=== PATIENT | female | born 1960 | race Caucasian/White ===

== ENCOUNTER → 2021-09-25 | Outpatient (CLI) | payer BC ==
--- NOTE | 2021-09-26 13:51 | MM ---
Reason for exam: screening (asymptomatic). Last mammogram was performed 18 years and 11 months ago. History: Patient is postmenopausal. Physical Findings: A clinical breast exam by your physician is recommended on an annual basis and results should be correlated with mammographic findings. MG 3D Screening Mammo W/Cad Bilateral CC and MLO view(s) were taken. XCCL view(s) were taken of the left breast. Prior study comparison: October 21, 2017, mammogram. January 18, 2015, mammogram. There are scattered fibroglandular densities. There are benign appearing round calcifications bilaterally. There is no discrete abnormality. ASSESSMENT: Negative, BI-RAD 1 RECOMMENDATION: Routine screening mammogram of both breasts in 1 year.
== END | disposition home or self-care (01) ==
LOC: RADMAMWWP 16:24
PROVIDERS: ATTEND Family Medicine
DX: Z08 Encounter for follow-up examination after completed treatment for malignant neoplasm (principal); Z80.3 Family history of malignant neoplasm of breast
CPT/HCPCS: 77063; 77067

== ENCOUNTER 2021-11-14 12:59 | Emergency (ER) | payer BC ==
--- NOTE | 2021-11-14 13:27 | ED ---
General Adult HPI - General Chief complaint: Fever Stated complaint: Fever,dehydration,Nausea Time Seen by Provider: 11/14/21 13:09 Source: patient Mode of arrival: ambulatory Limitations: no limitations - History of Present Illness Initial comments: 61-year-old female presents to the emergency room for a chief complaint of not feeling well. Patient states 2 days ago she started to feel sick. States she has had hot and cold flashes and felt fatigued. She has a slight cough. Patient states she just got over COVID-19 a few weeks ago. She went to urgent care today and tested negative for influenza but they were concerned about dehydration on her urinalysis so they sent her to the emergency room. Patient states her highest temperature is 98.3.Patient has no other complaints at this time including shortness of breath, chest pain, abdominal pain, nausea or vomiting, headache, or visual changes. - Related Data Home Medications Medication Instructions Recorded Confirmed Atorvastatin [Lipitor] 20 mg PO HS 11/14/21 11/14/21 Celecoxib [CeleBREX] 200 mg PO BID 11/14/21 11/14/21 Lisinopril [Prinivil] 10 mg PO DAILY 11/14/21 11/14/21 Turmeric Root Extract [Turmeric] 500 mg PO BID 11/14/21 11/14/21 Previous Rx's Medication Instructions Recorded Cephalexin [Keflex] 500 mg PO TID 7 Days #21 cap 11/14/21 Ondansetron [Zofran ODT] 4 mg PO Q8HR PRN #15 tab 11/14/21 Allergies Allergy/AdvReac Type Severity Reaction Status Date / Time No Known Allergies Allergy Verified 11/14/21 14:20 Review of Systems ROS Statement: Those systems with pertinent positive or pertinent negative responses have been documented in the HPI. ROS Other: All systems not noted in ROS Statement are negative. Past Medical History Past Medical History: No Reported History Additional Past Medical History / Comment(s): HX OF CONCUSSION, STATES SHE FELL AND "BROKE MY BACK"- WEARING BACK BRACE & HAS WALKER. History of Any Multi-Drug Resistant Organisms: None Reported Past Surgical History: Section, Hysterectomy, Tubal Ligation Additional Past Surgical History / Comment(s): REPAIR TENDON RIGHT ARM Past Anesthesia/Blood Transfusion Reactions: Motion Sickness Additional Past Anesthesia/Blood Transfusion Reaction / Comment(s): STATES DIFFICULTY WAKING UP. Past Psychological History: Depression Smoking Status: Current some day smoker Past Alcohol Use History: None Reported Past Drug Use History: None Reported - Past Family History Mother Family Medical History: No Reported History General Exam Limitations: no limitations General appearance: alert, in no apparent distress Head exam: Present: atraumatic Eye exam: Present: normal appearance, PERRL, EOMI. Absent: scleral icterus, conjunctival injection ENT exam: Present: normal exam, mucous membranes moist Neck exam: Present: normal inspection, full ROM. Absent: tenderness Respiratory exam: Present: normal lung sounds bilaterally. Absent: respiratory distress, wheezes Cardiovascular Exam: Present: regular rate, normal rhythm, normal heart sounds GI/Abdominal exam: Present: soft, normal bowel sounds. Absent: distended, tenderness Neurological exam: Present: alert Course Vital Signs 11/14/21 11/14/21 11/14/21 13:06 13:43 15:44 Temperature 98.3 F Pulse Rate 66 62 Respiratory 18 17 18 Rate Blood Pressure 98/64 130/81 O2 Sat by Pulse 94 L 95 Oximetry Medical Decision Making - Medical Decision Making Vitals are stable. Patient is well appearing. CBC does show mild leukocytosis. CMP unremarkable this may be some dehydration. Urinalysis does show evidence of infection. Patient is not having any flank pain or CVA tenderness. Chest x- ray shows no acute cardiopulmonary process. At this time patient will be treated for urinary tract infection. Patient was given IV antibiotics and will be transitioned to oral antibiotics at home. Strict return parameters discu ssed. - Lab Data Result diagrams: 11/14/21 13:38 11/14/21 13:38 Lab Results 11/14/21 11/14/21 11/14/21 Range/Units 13:38 13:38 13:38 WBC 12.6 H (3.8-10.6) k/uL RBC 5.12 (3.80-5.40) m/uL Hgb 15.4 (11.4-16.0) gm/dL Hct 48.5 H (34.0-46.0) % MCV 94.7 (80.0-100.0) fL MCH 30.0 (25.0-35.0) pg MCHC 31.7 (31.0-37.0) g/dL RDW 13.9 (11.5-15.5) % Plt Count 178 (150-450) k/uL MPV 8.9 Neutrophils % 86 % Lymphocytes % 6 % Monocytes % 6 % Eosinophils % 1 % Basophils % 1 % Neutrophils # 10.7 H (1.3-7.7) k/uL Lymphocytes # 0.7 L (1.0-4.8) k/uL Monocytes # 0.8 (0-1.0) k/uL Eosinophils # 0.1 (0-0.7) k/uL Basophils # 0.1 (0-0.2) k/uL Sodium 136 L (137-145) mmol/L Potassium 4.1 (3.5-5.1) mmol/L Chloride 105 (98-107) mmol/L Carbon Dioxide 22 (22-30) mmol/L Anion Gap 9 mmol/L BUN 16 (7-17) mg/dL Creatinine 1.16 H (0.52-1.04) mg/dL Est GFR (CKD-EPI)AfAm 59 (>60 ml/min/1.73 sqM) Est GFR (CKD-EPI)NonAf 51 (>60 ml/min/1.73 sqM) Glucose 185 H (74-99) mg/dL Calcium 9.5 (8.4-10.2) mg/dL Total Bilirubin 0.8 (0.2-1.3) mg/dL AST 27 (14-36) U/L ALT 23 (4-34) U/L Alkaline Phosphatase 142 H (38-126) U/L Total Protein 6.9 (6.3-8.2) g/dL Albumin 3.6 (3.5-5.0) g/dL Urine Color Yellow Urine Appearance Cloudy H (Clear) Urine pH 6.5 (5.0-8.0) Ur Specific [place] 1.006 (1.001-1.035) Urine Protein 1+ H (Negative) Urine Glucose (UA) Negative (Negative) Urine Ketones Negative (Negative) Urine Blood Moderate H (Negative) Urine Nitrite Negative (Negative) Urine Bilirubin Negative (Negative) Urine Urobilinogen <2.0 (<2.0) mg/dL Ur Leukocyte Esterase Large H (Negative) Urine RBC 8 H (0-5) /hpf Urine WBC >182 H (0-5) /hpf Urine WBC Clumps Few H (None) /hpf Ur Squamous Epith Cells <1 (0-4) /hpf Urine Bacteria Moderate H (None) /hpf Urine Yeast (Budding) Few H (None) /hpf Disposition Clinical Impression: Urinary tract infection Disposition: HOME SELF-CARE Condition: Good Instructions (If sedation given, give patient instructions): Urinary Tract Infection in Women (ED) Additional Instructions: Please follow up with your doctor early next week. You should have kidney function repeated as well. Return to the er for any worsening symptoms. Prescriptions: Cephalexin [Keflex] 500 mg PO TID 7 Days #21 cap Ondansetron [Zofran ODT] 4 mg PO Q8HR PRN #15 tab PRN Reason: Nausea Is patient prescribed a controlled substance at d/c from ED?: No Referrals: Jeramie Henson DO [Primary Care Provider] - 1-2 days Time of Disposition: 15:52
[2021-11-14] MEDS: SODIUM CHLORIDE 0.9% 1,000 ML IV STA (13:41)
[2021-11-14 14:04] LABS: Basophils # (A) 0.1 k/uL (0-0.2); Basophils % (A) 1 %; Eosinophils # (A) 0.1 k/uL (0-0.7); Eosinophils % (A) 1 %; HCT 48.5 % (34.0-46.0); HGB 15.4 gm/dL (11.4-16.0); Lymphocytes # (A) 0.7 k/uL (1.0-4.8); Lymphocytes % (A) 6 %; MCHC 31.7 g/dL (31.0-37.0); MCV 94.7 fL (80.0-100.0); Mean Platelet Volume 8.9; Monocytes # (A) 0.8 k/uL (0-1.0); Monocytes % (A) 6 %; Neutrophils # (A) 10.7 k/uL (1.3-7.7); Neutrophils % (A) 86 %; Platelet Count 178 k/uL (150-450); RBC 5.12 m/uL (3.80-5.40); RDW 13.9 % (11.5-15.5); WBC 12.6 k/uL (3.8-10.6)
--- NOTE | 2021-11-14 14:09 | XR ---
EXAMINATION TYPE: XR chest 2V DATE OF EXAM: 11/14/2021 COMPARISON: 10/11/2015 HISTORY: Cough TECHNIQUE: Frontal and lateral views of the chest are obtained. FINDINGS: There is no focal air space opacity, pleural effusion, or pneumothorax seen. The cardiac silhouette size is within normal limits. The osseous structures are intact. IMPRESSION: No acute cardiopulmonary process.
[2021-11-14 14:13] LABS: Albumin 3.6 g/dL (3.5-5.0); Calcium 9.5 mg/dL (8.4-10.2); Potassium 4.1 mmol/L (3.5-5.1); Total Bilirubin 0.8 mg/dL (0.2-1.3); Total Protein 6.9 g/dL (6.3-8.2)
[2021-11-14 15:08] LABS: Appearance,Urine Cloudy (Clear); Bacteria,Urine Moderate /hpf; Bilirubin,Urine Negative (Negative); Blood,Urine Moderate (Negative); Budding Yeast,Urine Few /hpf; Color,Urine Yellow; Glucose,Urine (UA) Negative (Negative); Ketones,Urine Negative (Negative); Leukocyte Esterase,Urine Large (Negative); Nitrite,Urine Negative (Negative); PH, Urine 6.5 (5.0-8.0); Protein,Urine 1+ (Negative); RBC,Urine 8 /hpf (0-5); Specific Gravity,Urine 1.006 (1.001-1.035); Squamous Epithelial Cell,Urine <1 /hpf (0-4); Urobilinogen,Urine <2.0 mg/dL (<2.0); WBC,Urine >182 /hpf (0-5)
[2021-11-14 15:49] VITALS: BP 130/81; PULSE 62; RESP 18
[2021-11-14] MEDS: cefTRIAXone IN SWFI 1,000 MG/10 ML SYRINGE IVP STA (15:53)
[2021-11-14 16:12] VITALS: TEMP 99
== END 2021-11-14 16:12 | disposition home or self-care (01) ==
LOC: EC 12:59
DX: N39.0 Urinary tract infection, site not specified (principal); B96.89 Other specified bacterial agents as the cause of diseases classified elsewhere; D72.829 Elevated white blood cell count, unspecified; F17.200 Nicotine dependence, unspecified, uncomplicated; Z86.16 Personal history of COVID-19
CPT/HCPCS: 36415; 80053; 85025; 81001; 87086; 71046; 99283; 96374; 96361; J0696; 87077; 87186

== ENCOUNTER → 2024-05-05 | Outpatient (CLI) | payer BC ==
--- NOTE | 2024-05-05 15:57 | XR ---
Left knee HISTORY: Pain COMPARISON: None. TECHNIQUE: 2 views left knee were obtained. FINDINGS: There is no fracture or focal intraosseous abnormality. There is mild narrowing of all 3 compartments of the knee suggestive of mild osteoarthritis. There ar e no soft tissue abnormalities. IMPRESSION: 1. No acute trauma. 2 possibly mild osteoarthritis
== END | disposition home or self-care (01) ==
LOC: RADXRMAIN 15:29
PROVIDERS: ATTEND Family Medicine
DX: M25.562 Pain in left knee (principal)